=== PATIENT | male | born 1995 | race Caucasian/White ===

== ENCOUNTER 2016-07-31 14:58 | Emergency (ER) | payer SELFPAY ==
[~2016-07-31] VITALS: Ht 182.9 cm; Wt 68.6 kg
[2016-07-31 15:16] VITALS: BP 131/79
== END 2016-07-31 16:13 | disposition home or self-care (01) ==
LOC: ED 16:07
DX: F41.1 Generalized anxiety disorder (principal); Z76.0 Encounter for issue of repeat prescription; F12.10 Cannabis abuse, uncomplicated
CPT/HCPCS: 99283

== ENCOUNTER 2017-02-08 14:54 | Emergency (ER) | payer MEDICAID ==
[~2017-02-08] VITALS: Ht 182.9 cm; Wt 69.3 kg
[2017-02-08 15:02] VITALS: BP 157/106
[2017-02-08] MEDS ORDERED: LORazepam 1MG TABLET PO ONE (16:00)
== END 2017-02-08 16:35 | disposition home or self-care (01) ==
LOC: ED 15:30
DX: F41.1 Generalized anxiety disorder (principal); F32.9 Major depressive disorder, single episode, unspecified
CPT/HCPCS: 99284

== ENCOUNTER 2017-03-19 04:19 | Emergency (ER) | payer MEDICAID ==
[~2017-03-19] VITALS: Ht 182.9 cm; Wt 71.9 kg
[2017-03-19 04:22] VITALS: BP 131/94
[2017-03-19] MEDS ORDERED: DEXAMETHASONE 4 MG TABLET PO ONE (05:00)
[2017-03-19] MEDS ORDERED: HYDROcodone/APAP 7.5-325MG/15ML UDC PO ONE (05:00)
[2017-03-19] MEDS ORDERED: DEXAMETHASONE 4 MG TABLET ONE (05:01)
[2017-03-19] MEDS ORDERED: HYDROcodone/APAP 7.5-325MG/15ML UDC ONE (05:02)
== END 2017-03-19 05:20 | disposition home or self-care (01) ==
LOC: ED 05:12
DX: H65.02 Acute serous otitis media, left ear (principal); J03.00 Acute streptococcal tonsillitis, unspecified
CPT/HCPCS: 99283

== ENCOUNTER 2017-09-11 08:30 | Emergency (ER) | payer MEDICAID ==
[~2017-09-11] VITALS: Ht 182.9 cm; Wt 70.0 kg
[2017-09-11] MEDS ORDERED: LORazepam 1MG TABLET ONE ×2 (09:25→21:19)
[2017-09-11] MEDS ORDERED: LORazepam 1MG TABLET PO ONE ×2 (09:30→21:30)
[2017-09-11] MEDS ORDERED: IBUPROFEN 200 MG TABLET PO ONE (10:00)
[2017-09-11 10:02] LABS: ALBUMIN 4.4 g/dL (3.4-5.0); ANION GAP 12 mmol/L (5-15); CALCIUM 9.8 mg/dL (8.5-10.1); CHLORIDE 109 mmol/L (98-107); CREATININE 1.29 mg/dL (0.7-1.3); SALICYLATE LEVEL 2.5 mg/dL (2.8-20.0)
[2017-09-11 10:03] LABS: ACETAMINOPHEN < 2 mcg/mL (10-30)
[2017-09-11] MEDS ORDERED: IBUPROFEN 200 MG TABLET ONE (10:04)
[2017-09-11 10:18] LABS: AMPHETAMINE SCREEN, URINE Negative (Negative); BARBITURATE SCREEN, URINE Negative (Negative); BENZODIAZEPINE SCREEN, URINE Negative (Negative); CANNABINOID SCREEN, URINE Negative (Negative); COCAINE SCREEN, URINE Positive (Negative); METHADONE SCREEN, URINE Negative (Negative); OPIATE SCREEN, URINE Negative (Negative)
[2017-09-11 10:39] LABS: BASOPHILS # (AUTO) 0.04 x10^3/uL (0-0.1); BASOPHILS % (AUTO) 0 % (0-1); EOSINOPHILS # (AUTO) 0.01 x10^3/uL (0-0.4); EOSINOPHILS % (AUTO) 0 % (1-7); LYMPHOCYTES % (AUTO) 20 % (22-44); MD NO; MEAN CORPUSCULAR HEMOGLOBIN 32.8 pg (27.5-34.5); MEAN CORPUSCULAR HGB CONC 34.3 g/dL (33.2-36.2); MEAN CORPUSCULAR VOLUME 95.5 fL (81-97); MONOCYTES # (AUTO) 0.85 x10^3/uL (0.2-0.8); MONOCYTES % (AUTO) 8 % (2-9); NEUTROPHILS # (AUTO) 8.11 x10^3/uL (1.8-6.8); NEUTROPHILS % (AUTO) 72 % (42-75); PLATELET COUNT 201 x10^3/uL (130-400); RED BLOOD COUNT 5.24 x10^6/uL (4.38-5.82)
[2017-09-12 06:17] VITALS: BP 118/74
== END 2017-09-12 10:02 | disposition home or self-care (01) ==
LOC: ED 11:09
DX: F41.9 Anxiety disorder, unspecified (principal); R45.851 Suicidal ideations; F14.10 Cocaine abuse, uncomplicated; Z79.899 Other long term (current) drug therapy
CPT/HCPCS: 36415; 80048; 80307; 80329; 82040; 85025; 99284; G0480

== ENCOUNTER 2017-12-10 14:35 | Emergency (ER) | payer MEDICAID ==
[~2017-12-10] VITALS: Ht 182.9 cm; Wt 70.0 kg
[2017-12-10] MEDS ORDERED: KETOROLAC 30 MG/1 ML IM ONE (15:30)
[2017-12-10] MEDS ORDERED: KETOROLAC 30 MG/1 ML ONE (16:00)
[2017-12-10 16:56] VITALS: BP 133/82
== END 2017-12-10 16:59 | disposition home or self-care (01) ==
LOC: ED 16:58
DX: S20.219A Contusion of unspecified front wall of thorax, initial encounter (principal); Y08.89XA Assault by other specified means, initial encounter; Y93.89 Activity, other specified; Y92.89 Other specified places as the place of occurrence of the external cause; Y99.8 Other external cause status
CPT/HCPCS: 71046; 93005; 96372; 99284; J1885

== ENCOUNTER 2018-08-30 22:08 | Inpatient (IN) | payer MEDICAID, OTHER ==
[~2018-08-30] VITALS: Ht 182.9 cm; Wt 74.9 kg
[2018-08-30] MEDS ORDERED: DIPH,PERTUSS(ACELL),TET VAC/PF 0.5 ML IM-VACC ONE ×2 (23:00→23:43)
[2018-08-30] MEDS ORDERED: SODIUM CHLORIDE FLUSH 10ML SYR IVF ONE (23:00)
[2018-08-30 23:31] LABS: MEAN CORPUSCULAR HEMOGLOBIN 32.9 pg (27.5-34.5); MEAN CORPUSCULAR HGB CONC 33.4 g/dL (33.2-36.2); MEAN CORPUSCULAR VOLUME 98.6 fL (81-97); MEAN PLATELET VOLUME 8.4 fL (7.4-10.4); PLATELET COUNT 194 x10^3/uL (130-400); RED BLOOD COUNT 5.42 x10^6/uL (4.38-5.82); RED CELL DISTRIBUTION WIDTH 13.3 % (9.4-14.8)
[2018-08-30 23:43] LABS: ALBUMIN 4.4 g/dL (3.4-5.0); ANION GAP 10 mmol/L (5-15); CALCIUM 9.2 mg/dL (8.5-10.1); CHLORIDE 103 mmol/L (98-107); CREATININE 1.26 mg/dL (0.7-1.3)
[2018-08-30] MEDS ORDERED: VANCOMYCIN 1,400 MG in SODIUM CHLORIDE 0.9% 250 ML IV ONE (23:45)
[2018-08-31] MEDS ORDERED: AMPICILLIN/SULBACTAM 3 GM in SODIUM CHLORIDE 0.9% 100 ML IV ONE
[2018-08-31] MEDS ORDERED: morphine SULFATE 10 MG/ML, 1ML IVPush ONE
--- NOTE | 2018-08-31 00:02 | NUR ---
BLOOD CULTURES DRAWN TIMES 2 PRIOR TO ABX. PIECE TITANIUM R 4TH FINGER, OCCURRED AT WORK, STREAKING U ARM TODAY
[2018-08-31 00:07] LABS: BASOPHILS % (AUTO) 0 % (0-1); EOSINOPHILS % (AUTO) 0 % (1-7); LYMPHOCYTES # (AUTO) 1.45 x10^3/uL (1-3.4); LYMPHOCYTES % (AUTO) 8 % (22-44); MD SCAN; MONOCYTES # (AUTO) 1.46 x10^3/uL (0.2-0.8); MONOCYTES % (AUTO) 8 % (2-9); NEUTROPHILS # (AUTO) 15.94 x10^3/uL (1.8-6.8); NEUTROPHILS % (AUTO) 85 % (42-75)
[2018-08-31] MEDS ORDERED: MORPHINE SULFATE 4 MG/ML, 1ML ONE (00:08)
--- NOTE | 2018-08-31 00:15 | NUR ---
PT GIVEN WORKS COMP PAPERWORK AT THIS TIME.
--- NOTE | 2018-08-31 00:54 | NUR ---
AWAIT ROOM ASSIGNMENT, PT REMAINS STABLE BUT NAD
[2018-08-31 01:08] LABS: INTERNATIONAL NORMALIZED RATIO 1.04 (0.93-1.1); PROTHROMBIN TIME 10.9 Seconds (9.6-11.5)
[2018-08-31 01:11] LABS: ALBUMIN 4.4 g/dL (3.4-5.0); BILIRUBIN, DIRECT 0.3 mg/dL (0.1-0.2)
[2018-08-31 01:13] LABS: BILIRUBIN,INDIRECT 0.8 mg/dL (0.0-2.0); BILIRUBIN,TOTAL 1.1 mg/dL (0.2-1.0); TOTAL PROTEIN 8.3 g/dL (6.4-8.2)
[2018-08-31 02:11] VITALS: BP 139/79
[2018-08-31 02:25] VITALS: BP 132/72
[2018-08-31] MEDS ORDERED: MORPHINE SULFATE 4 MG/ML, 1ML IVPush ONE (03:30)
[2018-08-31] MEDS ORDERED: HYDROmorphone 1 MG/ML, 1ML INJ IV PRN (04:00)
[2018-08-31] MEDS: HYDROmorphone 2 MG/ML, 1ML IVPush PRN ×6 (04:19→23:28)
[2018-08-31] MEDS ORDERED: SODIUM CHLORIDE 0.9% 1,000 ML IV SCH (05:04)
[2018-08-31] MEDS ORDERED: VANCOMYCIN PER PHARMACY MC PRN ×2 (05:30)
[2018-08-31] MEDS ORDERED: ACETAMINOPHEN 325 MG TABLET PO PRN (05:30)
[2018-08-31] MEDS ORDERED: PROMETHAZINE 25 MG/ML, 1ML IM PRN (05:30)
[2018-08-31] MEDS: NICOTINE 21 MG/24 HR PATCH.TD24 TD SCH (05:45)
[2018-08-31] MEDS ORDERED: PHARMACOKINETIC MONITORING MC PRN (06:00)
[2018-08-31] MEDS ORDERED: PHARMACOKINETIC CONSULTATION MC ONE (06:00)
[2018-08-31 06:46] VITALS: BP 129/76
[2018-08-31] MEDS ORDERED: KETOROLAC 30 MG/1 ML IVPush SCH (07:30)
[2018-08-31] MEDS: AMPICILLIN/SULBACTAM 3 GM in SODIUM CHLORIDE 0.9% 100 ML IV SCH ×2 (07:31→18:26)
[2018-08-31] MEDS ORDERED: HYDROmorphone 2 MG/ML, 1ML ONE ×2 (11:08→17:16)
[2018-08-31] MEDS: VANCOMYCIN 1,400 MG in SODIUM CHLORIDE 0.9% 250 ML IV SCH ×2 (11:10→23:28)
[2018-08-31] MEDS ORDERED: KETOROLAC 30 MG/1 ML IM PRN (11:30)
[2018-08-31 12:31] VITALS: BP 127/78
[2018-08-31 12:41] LABS: BASOPHILS # (AUTO) 0.06 x10^3/uL (0-0.1); BASOPHILS % (AUTO) 0 % (0-1); EOSINOPHILS # (AUTO) 0.09 x10^3/uL (0-0.4); EOSINOPHILS % (AUTO) 1 % (1-7); LYMPHOCYTES # (AUTO) 2.03 x10^3/uL (1-3.4); LYMPHOCYTES % (AUTO) 16 % (22-44); MD NO; MEAN CORPUSCULAR HGB CONC 32.7 g/dL (33.2-36.2); MEAN CORPUSCULAR VOLUME 97.8 fL (81-97); MEAN PLATELET VOLUME 8.3 fL (7.4-10.4); MONOCYTES # (AUTO) 1.21 x10^3/uL (0.2-0.8); MONOCYTES % (AUTO) 9 % (2-9); NEUTROPHILS # (AUTO) 9.63 x10^3/uL (1.8-6.8); NEUTROPHILS % (AUTO) 74 % (42-75); PLATELET COUNT 149 x10^3/uL (130-400); RED BLOOD COUNT 4.61 x10^6/uL (4.38-5.82); RED CELL DISTRIBUTION WIDTH 13.9 % (9.4-14.8)
[2018-08-31 12:43] LABS: ALANINE AMINOTRANSFERASE 21 U/L (12-78); ALBUMIN 3.5 g/dL (3.4-5.0); ANION GAP 6 mmol/L (5-15); CALCIUM 8.2 mg/dL (8.5-10.1); CHLORIDE 109 mmol/L (98-107); CREATININE 0.82 mg/dL (0.7-1.3)
[2018-08-31 12:54] LABS: HCT (SEDRATE) 45.1 % (39.2-51.8)
[2018-08-31 13:10] LABS: ALKALINE PHOSPHATASE 61 U/L (45-117); BILIRUBIN,TOTAL 1.5 mg/dL (0.2-1.0); TOTAL PROTEIN 6.2 g/dL (6.4-8.2)
[2018-08-31] MEDS ORDERED: GADOBUTROL 7.5 MMOL/7.5 ML PFS ONE (14:27)
[2018-08-31] MEDS ORDERED: FENTANYL PF 100 MCG/2ML ONE ×2 (16:27→17:16)
[2018-08-31] MEDS ORDERED: ONDANSETRON 2MG/ML, 2ML ONE (16:52)
[2018-08-31] MEDS ORDERED: CEFAZOLIN 1,000 MG ONE (16:52)
[2018-08-31] MEDS ORDERED: PROPOFOL 10 MG/ML, 20ML ONE (16:52)
[2018-08-31] MEDS ORDERED: DEXAMETHASONE 4 MG/ML, 1ML ONE (16:52)
[2018-08-31] MEDS ORDERED: MEPERIDINE/PF 25MG/0.5ML IVPush PRN (17:00)
[2018-08-31] MEDS ORDERED: DIPHENHYDRAMINE 50 MG/ML, 1ML IVPush PRN (17:00)
[2018-08-31] MEDS ORDERED: PROMETHAZINE 25 MG/ML, 1ML IV PRN (17:00)
[2018-08-31] MEDS ORDERED: OXYcodone 5 MG/5 ML ORAL.SOL UDC PO PRN (17:00)
[2018-08-31] MEDS ORDERED: HYDROmorphone 2 MG/ML, 1ML IVPush PRN (17:00)
[2018-08-31] MEDS ORDERED: PROCHLORPERAZINE 5 MG/ML, 2ML IV PRN (17:00)
[2018-08-31] MEDS ORDERED: METOPROLOL 1 MG/ML, 5ML IV PRN (17:00)
[2018-08-31] MEDS ORDERED: LABETALOL 5MG/ML, 20ML IV PRN (17:00)
[2018-08-31] MEDS ORDERED: hydrALAzine 20 MG/ML, 1ML IV PRN (17:00)
[2018-08-31] MEDS ORDERED: HALOPERIDOL 5 MG/ML IV PRN (17:00)
[2018-08-31] MEDS: FENTANYL PF 100 MCG/2ML IV PRN ×2 (17:11→17:21)
[2018-08-31] MEDS ORDERED: MEPERIDINE/PF 25MG/ML,1ML ONE (17:16)
[2018-08-31] MEDS ORDERED: OXYcodone 5 MG/5 ML ORAL.SOL UDC ONE (17:16)
[2018-08-31] MEDS ORDERED: DIAZEPAM 5 MG/ML, 2ML ONE (17:25)
[2018-08-31] MEDS ORDERED: DIPHENHYDRAMINE 50 MG/ML, 1ML ONE (17:39)
[2018-08-31] MEDS ORDERED: DIAZEPAM 5 MG/ML, 2ML IV ONE (18:00)
[2018-08-31] MEDS: D5%-0.45% NACL 1,000 ML IV SCH (18:25)
[2018-08-31 19:23] VITALS: BP 122/104
[2018-08-31] MEDS ORDERED: DIPHENHYDRAMINE 25 MG CAPSULE PO PRN (19:30)
[2018-09-01 00:20] VITALS: BP 115/70
[2018-09-01] MEDS: AMPICILLIN/SULBACTAM 3 GM in SODIUM CHLORIDE 0.9% 100 ML IV SCH ×2 (02:53→10:05)
[2018-09-01] MEDS: D5%-0.45% NACL 1,000 ML IV SCH ×2 (02:53→10:05)
[2018-09-01 04:05] VITALS: BP 118/66
[2018-09-01 05:14] LABS: CHLORIDE 105 mmol/L (98-107)
[2018-09-01 05:21] LABS: ALANINE AMINOTRANSFERASE 23 U/L (12-78); ALBUMIN 3.1 g/dL (3.4-5.0); ALKALINE PHOSPHATASE 62 U/L (45-117); ANION GAP 6 mmol/L (5-15); BILIRUBIN,TOTAL 0.5 mg/dL (0.2-1.0); CALCIUM 8.2 mg/dL (8.5-10.1); TOTAL PROTEIN 6.4 g/dL (6.4-8.2)
[2018-09-01 05:27] LABS: BASOPHILS # (AUTO) 0.01 x10^3/uL (0-0.1); BASOPHILS % (AUTO) 0 % (0-1); EOSINOPHILS # (AUTO) 0.01 x10^3/uL (0-0.4); EOSINOPHILS % (AUTO) 0 % (1-7); LYMPHOCYTES # (AUTO) 0.82 x10^3/uL (1-3.4); LYMPHOCYTES % (AUTO) 8 % (22-44); MD NO; MEAN CORPUSCULAR HEMOGLOBIN 32.2 pg (27.5-34.5); MEAN CORPUSCULAR VOLUME 97.8 fL (81-97); MEAN PLATELET VOLUME 8.9 fL (7.4-10.4); MONOCYTES # (AUTO) 0.69 x10^3/uL (0.2-0.8); MONOCYTES % (AUTO) 7 % (2-9); NEUTROPHILS # (AUTO) 8.66 x10^3/uL (1.8-6.8); NEUTROPHILS % (AUTO) 85 % (42-75); PLATELET COUNT 146 x10^3/uL (130-400); RED BLOOD COUNT 4.33 x10^6/uL (4.38-5.82); RED CELL DISTRIBUTION WIDTH 12.9 % (9.4-14.8)
[2018-09-01 06:29] VITALS: BP 129/64
[2018-09-01] MEDS: NICOTINE 21 MG/24 HR PATCH.TD24 TD SCH (08:24)
[2018-09-01] MEDS: HYDROcodone/APAP 5/325 TABLET PO PRN ×2 (08:25→09:10)
[2018-09-01] MEDS: VANCOMYCIN 1,400 MG in SODIUM CHLORIDE 0.9% 250 ML IV SCH (11:32)
[2018-09-01] MEDS: OXYcodone/APAP 5/325MG TABLET PO PRN ×2 (11:59→16:18)
[2018-09-01 13:10] VITALS: BP 139/79
[2018-09-01] MEDS ORDERED: KETOROLAC 30 MG/1 ML IV PRN (17:30)
[2018-09-01] MEDS ORDERED: VANCOMYCIN 1,400 MG in SODIUM CHLORIDE 0.9% 250 ML IV SCH (20:00)
== END 2018-09-01 17:25 | disposition left against medical advice (07) | DRG 854 ==
LOC: ED 23:59 → EDIP 08-31 00:30 → 4NOR 08-31 02:00
PROVIDERS: ADMIT Internal Medicine; ATTEND Internal Medicine
PROC: 0J9J0ZZ Drainage of Right Hand Subcutaneous Tissue and Fascia, Open Approach (ICD-10-PCS; principal; 2018-09-01)
DX: A41.9 Sepsis, unspecified organism (principal); R17 Unspecified jaundice; M65.141 Other infective (teno)synovitis, right hand; D75.1 Secondary polycythemia; F17.210 Nicotine dependence, cigarettes, uncomplicated; R65.20 Severe sepsis without septic shock; S61.219A Laceration without foreign body of unspecified finger without damage to nail, initial encounter; L08.9 Local infection of the skin and subcutaneous tissue, unspecified; F12.90 Cannabis use, unspecified, uncomplicated; Z53.21 Procedure and treatment not carried out due to patient leaving prior to being seen by health care provider; W45.8XXA Other foreign body or object entering through skin, initial encounter; Y93.89 Activity, other specified; Y92.89 Other specified places as the place of occurrence of the external cause; Y99.0 Civilian activity done for income or pay
CPT/HCPCS: 36415; 80048; 80053; 80076; 80202; 82040; 82607; 83605; 83735; 84145; 84443; 85025; 85610; 85651; 85730; 86140; 87040; 87070; 87075; 87147; 87205; 90471; 90715; 96365; 96366; 96368; 96375; A9585; G0378; J0295; J0690; J1100; J1170; J1885; J2175; J2405; J2704; J3010; J3360; J3370; J1200; J2270; J7030; J7050